=== PATIENT | female | born 1990 | race Caucasian/White ===

== ENCOUNTER → 2017-07-29 | Outpatient (CLI) | payer OTHER ==
[~2017-07-29] MED LIST: AXIRON30 MG/1.5 TD; AZIT250 PO; BIRTH CONTROL PILL PO; CLIN300 PO; CYCL10 PO; DEPO PROVERA; DHEA PO; ERYT.5TO OD; ETHINYL ESTRADIOL; FERR325 PO; HYDACE5 PO; IBUP600 PO; LUPRON; MEDR150I IM; MULVITMINE PO; NAPR500 PO; NORETHINDRONE; OMEP40CA12 PO; OXYACE5T PO; OXYACE7.5T PO; POLY17UD PO; PROM25 PO; Percocet 5-3251 EACH PO; Portia1 EACH PO; RANI150 PO; RXCYCL10 PO; RXHYDACE PO; SEASONIQUE BCP PO; Sucralfate1 GM PO; TAMS.4ER PO; TESTOSTERONE PRO; TRAM50 PO; VAGIFEM10 MCG VG; ZOLP10 PO; Zofran Odt4 MG SL; [UNRECOGNIZED DRUG - OTHER]; [UNRECOGNIZED DRUG - OTHER] PO
== END | disposition home or self-care (01) ==
LOC: LAB EV 12:55
DX: J03.90 Acute tonsillitis, unspecified (principal)
CPT/HCPCS: 87070

== ENCOUNTER → 2017-08-30 | Outpatient (CLI) | payer OTHER ==
[2017-08-31 09:40] LABS: Source VAG/CERVIX
== END | disposition home or self-care (01) ==
LOC: LAB 16:23
PROVIDERS: Advanced Practice Midwife
DX: Z01.419 Encounter for gynecological examination (general) (routine) without abnormal findings (principal)
CPT/HCPCS: G0123

== ENCOUNTER → 2018-01-24 | Outpatient (CLI) | payer OTHER ==
[2018-01-25 09:55] LABS: Candida species (DNA Probe) Negative (NEGATIVE); G. vaginalis (DNA Probe) Positive (NEGATIVE); T. vaginalis (DNA Probe) Negative (NEGATIVE)
== END ==
LOC: LAB 13:56 → LAB SHORT 13:56
PROVIDERS: Obstetrics & Gynecology
DX: N76.0 Acute vaginitis (principal)
CPT/HCPCS: 87480; 87510; 87660

== ENCOUNTER → 2019-02-26 | Outpatient (CLI) | payer OTHER ==
[2019-02-26 19:01] LABS: Bilirubin, Urine Neg (Neg); Blood, Urine Neg (Neg); Glucose Qualitative, Urine Neg (Neg); Ketones, Urine Neg (Neg); Leukocyte Esterase, Urine Neg (Neg); Nitrite, Urine Neg (Neg); Protein, Urine Neg (Neg); Urobilinogen, Urine NORM (Normal)
[2019-02-26 19:03] LABS: Appearance, Urine Clear (Clear); Color, Urine Yellow (P-Yellow)
== END | disposition home or self-care (01) ==
LOC: LAB SHORT 18:19 → LAB 18:19
PROVIDERS: Advanced Practice Midwife
DX: R10.2 Pelvic and perineal pain (principal)
CPT/HCPCS: 81003; 87086

== ENCOUNTER → 2019-08-06 | Outpatient (CLI) | payer OTHER ==
[2019-08-06 15:10] LABS: Source, Urine Clean Catch
[2019-08-06 18:36] LABS: Appearance, Urine Clear (Clear); Bilirubin, Urine Neg (Neg); Blood, Urine 1+ (Neg); Color, Urine Amber (P-Yellow); Glucose Qualitative, Urine Neg (Neg); Ketones, Urine 2+ (Neg); Leukocyte Esterase, Urine 3+ (Neg); Nitrite, Urine Neg (Neg); Protein, Urine 1+ (Neg); Urobilinogen, Urine NORM (Normal)
[2019-08-06 18:45] LABS: Bacteria Many /hpf; Red Blood Cells, Urine 0-2 /hpf (0-2); Squamous Epithelial Cells Mod /hpf (Few); White Blood Cells, Urine 50-100 /hpf (0-5)
[2019-08-06 18:46] LABS: Mucus Light (0-Heavy)
== END | disposition home or self-care (01) ==
LOC: LAB 14:00 → LAB SHORT 14:00
PROVIDERS: Obstetrics & Gynecology
DX: R30.0 Dysuria (principal); R30.9 Painful micturition, unspecified
CPT/HCPCS: 81001; 87086

== ENCOUNTER 2019-08-22 06:16 | Inpatient (IN) | payer OTHER ==
[~2019-08-22] VITALS: Ht 160 cm; Wt 89.0 kg
[2019-08-22] MEDS ORDERED: PRENATAL GUMMI1 EACH PO (06:48)
[2019-08-22] MEDS ORDERED: CYCL10 PO (06:48)
[2019-08-22 06:49] LABS: BASOPHILS ABSOLUTE AUTO 0.05 K/mm3 (0.00-0.23); BASOPHILS PERCENT AUTO 1 % (0-2); EOSINOPHILS ABSOLUTE AUTO 0.11 K/mm3 (0.00-0.68); EOSINOPHILS PERCENT AUTO 1 % (0-6); Hematocrit 30.7 % (33.0-51.0); Hemoglobin 9.8 g/dL (11.5-16.0); IMMATURE GRAN ABSOLUTE AUTO 0.33 K/mm3 (0.00-0.10); IMMATURE GRAN PERCENT AUTO 3 % (0-1); LYMPHOCYTES ABSOLUTE AUTO 2.55 K/mm3 (0.84-5.20); LYMPHOCYTES PERCENT AUTO 23 % (21-46); MONOCYTES ABSOLUTE AUTO 0.94 K/mm3 (0.16-1.47); MONOCYTES PERCENT AUTO 9 % (4-13); Mean Corpuscular HGB 28.1 pg (26.0-34.0); Mean Corpuscular HGB Conc 31.9 g/dL (31.5-36.5); Mean Corpuscular Volume 88 fL (80-100); Mean Platelet Volume 10.9 fL (9.1-12.4); NEUTROPHILS ABSOLUTE AUTO 7.07 K/mm3 (1.96-9.15); NEUTROPHILS PERCENT AUTO 64 % (41-73); NRBC ABSOLUTE 0.02 K/mm3 (0.00-0.02); NRBC Auto 0.2 /100 WBC (0.0-0.2); Platelet Count 347 K/mm3 (150-400); RDW Coefficient Variation 13.4 % (11.7-14.2); RDW Standard Deviation 42.8 fL (35.1-46.3); Red Blood Cell Count 3.49 M/mm3 (3.80-5.20); White Blood Cell Count 11.05 K/mm3 (4.00-11.30)
--- NOTE | 2019-08-23 14:57 | NUR ---
Assumed care from Arleen Bryant RN. Pt sleeping soundly. knows to call with needs.
--- NOTE | 2019-08-23 17:17 | NUR ---
CONSULT. SHE IS LESS THAN 12 HOURS OLD AND ALREADY WAKING FOR SOME FEEDINGS. BABY JUST FINISHED AT BREAST, 4 MINUTES OF SUCKLING AND SHE WAS ASSISTED TO BREAST BY RN. INSTRUCT IN CHANGES TO EXPECT DURING THE FIRST WEEK WITH BABY AND WITH FEEDINGS AND REFERRED TO BF BOOKLET AND BF BROCHURE FOR PHOTOS AND INFORMATION. MOM HAD TAKEN [employer] CLASSES AND HAD BF INSTRUCTION DURING CLASS AND IS HANDLING BABY WELL AND WORKING ON WIDENING THE LATCH DURING SUCKLING. DENIES FURTHER QUESTIONS.
[2019-08-24 05:52] LABS: Hematocrit 22.5 % (33.0-51.0); Hemoglobin 7.3 g/dL (11.5-16.0); Mean Corpuscular HGB 28.2 pg (26.0-34.0); Mean Corpuscular HGB Conc 32.4 g/dL (31.5-36.5); Mean Corpuscular Volume 87 fL (80-100); Platelet Count 327 K/mm3 (150-400); RDW Coefficient Variation 13.6 % (11.7-14.2); RDW Standard Deviation 42.8 fL (35.1-46.3); Red Blood Cell Count 2.59 M/mm3 (3.80-5.20); White Blood Cell Count 28.56 K/mm3 (4.00-11.30)
[2019-08-24] MEDS ORDERED: IBUP800 PO (09:32)
--- NOTE | 2019-08-24 10:02 | NUR ---
RN ROUNDED ON PATIENT TO DISCUSS . MOTHER REPORTS THAT IS GOING WELL, STATES BABY LIKES TO BREASTFEED IN [place] HOLD ON LEFT SIDE BETTER THAN RIGHT SIDE. RN EDUCATED MOTHER ABOUT ABOUT POSSIBLY TRYING FOOTBALL HOLD ON RIGHT SIDE TO SEE IS SHE WAS MORE SUCCESSFUL WITH LATCHING. RN NOTICED A SMALL CRACK TO RIGHT NIPPLE, RN EXPLAINED THAT SHOULD NOT BE PAINFUL THE ENTIRE FEED AND DESCRIBED TO HER HOW TO DELATCH NB IF PAINFUL, ALSO EXPLAINED WHAT TO LOOK FOR WITH CORRECT LATCHING. MOTHER VERBALIZED UNDERSTANDING AND DENIES ANY FURTHER QUESTIONS OR CONCERNS AT THIS TIME.
--- NOTE | 2019-08-24 15:24 | NUR ---
DISCHARGE INSTRUCTIONS, WRITTEN AND VERBAL, GIVEN TO PT AND . ANSWERED ALL QUESTIONS AND CONCERNS.
--- NOTE | 2019-08-24 16:18 | NUR ---
ALL PERSONAL BELONGINGS RETURNED. FOLLOW UP APPOINTMENT SCHEDULED. PT IS DISCHARGED HOME, DRIVEN BY .
== END 2019-08-24 17:10 | disposition home or self-care (01) | DRG 807 ==
LOC: BC 06:16
PROVIDERS: ADMIT Obstetrics & Gynecology
PROC: 3E033VJ Introduction of Other Hormone into Peripheral Vein, Percutaneous Approach (ICD-10-PCS; 2019-08-22)
PROC: 10E0XZZ Delivery of Products of Conception, External Approach (ICD-10-PCS; principal; 2019-08-23)
PROC: 0KQM0ZZ Repair Perineum Muscle, Open Approach (ICD-10-PCS; 2019-08-23)
PROC: 10907ZC Drainage of Amniotic Fluid, Therapeutic from Products of Conception, Via Natural or Artificial Opening (ICD-10-PCS; 2019-08-23)
PROC: 3E0R3BZ Introduction of Anesthetic Agent into Spinal Canal, Percutaneous Approach (ICD-10-PCS; 2019-08-23)
DX: O48.0 Post-term pregnancy (principal); Z37.0 Single live birth; Z3A.41 41 weeks gestation of pregnancy; O99.02 Anemia complicating childbirth; D64.9 Anemia, unspecified; O77.0 Labor and delivery complicated by meconium in amniotic fluid; O63.1 Prolonged second stage (of labor); O70.0 First degree perineal laceration during delivery; Z88.0 Allergy status to penicillin
CPT/HCPCS: 36415; 51702; 85025; 85027; 85460; 96372; A9270; J1885; J2001; J2405; J2590; J2791; J3010; J7120

== ENCOUNTER → 2019-08-28 | Outpatient (CLI) | payer OTHER ==
[~2019-08-28] MED LIST changes: +IBUP800 PO; +PRENATAL GUMMI1 EACH PO
[2019-08-28 15:51] LABS: BASOPHILS ABSOLUTE AUTO 0.08 K/mm3 (0.00-0.23); BASOPHILS PERCENT AUTO 1 % (0-2); EOSINOPHILS ABSOLUTE AUTO 0.11 K/mm3 (0.00-0.68); EOSINOPHILS PERCENT AUTO 1 % (0-6); Hematocrit 29.4 % (33.0-51.0); Hemoglobin 9.2 g/dL (11.5-16.0); IMMATURE GRAN ABSOLUTE AUTO 0.23 K/mm3 (0.00-0.10); IMMATURE GRAN PERCENT AUTO 2 % (0-1); LYMPHOCYTES ABSOLUTE AUTO 1.96 K/mm3 (0.84-5.20); LYMPHOCYTES PERCENT AUTO 14 % (21-46); MONOCYTES ABSOLUTE AUTO 0.96 K/mm3 (0.16-1.47); MONOCYTES PERCENT AUTO 7 % (4-13); Mean Corpuscular HGB 27.8 pg (26.0-34.0); Mean Corpuscular HGB Conc 31.3 g/dL (31.5-36.5); Mean Corpuscular Volume 89 fL (80-100); Mean Platelet Volume 9.5 fL (9.1-12.4); NEUTROPHILS ABSOLUTE AUTO 10.59 K/mm3 (1.96-9.15); NEUTROPHILS PERCENT AUTO 76 % (41-73); NRBC ABSOLUTE 0.03 K/mm3 (0.00-0.02); NRBC Auto 0.2 /100 WBC (0.0-0.2); Platelet Count 730 K/mm3 (150-400); Red Blood Cell Count 3.31 M/mm3 (3.80-5.20); White Blood Cell Count 13.93 K/mm3 (4.00-11.30)
[2019-08-28 16:06] LABS: Alanine Aminotransfer (ALT/SGP 22 U/L (12-78); Albumin/Globulin Ratio 0.6 (0.8-1.8); Alk Phos 147 U/L (40-126); Anion Gap 12 mmol/L (6-16); Aspartate Aminotrans (AST/SGOT 23 U/L (12-37); Bilirubin, Total 0.4 mg/dL (0.1-1.0); Blood Urea Nitrogen 8 mg/dL (8-24); Bun/Creatinine Ratio 12.9 (12.0-20.0); CO2, Blood 24 mmol/L (21-32); Chloride, Blood 103 mmol/L (98-108); Creatinine, Blood 0.62 mg/dL (0.40-1.00); Globulin, Blood 5.3 g/dL (2.2-4.0); Glomerular Filtration Rate >60 (60-); Glucose, Blood 87 mg/dL (70-99); Potassium, Blood 3.9 mmol/L (3.5-5.5); Sodium, Blood 139 mmol/L (136-145); Total Protein, Blood 8.3 g/dL (6.4-8.2); Troponin I <0.017 ng/mL (0.000-0.040)
== END ==
LOC: LAB SHORT 15:47 → LAB EV 15:47
PROVIDERS: Physician Assistant
DX: R07.9 Chest pain, unspecified (principal)
CPT/HCPCS: 80053; 84484; 85025; 85379

== ENCOUNTER → 2021-10-15 | Outpatient (CLI) | payer OTHER ==
[~2021-10-15] MED LIST changes: +DICL25ER PO; +LORA1; +Prozac40 MG; +TRAM50
[2021-10-19 15:08] LABS: HPV 16 Negative (Negative); HPV 18 Negative (Negative); HPV OTHER HR TYPES Negative (Negative)
== END | disposition home or self-care (01) ==
LOC: LAB SHORT 16:00
PROVIDERS: Obstetrics & Gynecology
DX: Z01.419 Encounter for gynecological examination (general) (routine) without abnormal findings (principal)
CPT/HCPCS: 87624; G0123

== ENCOUNTER → 2021-12-09 | Outpatient (CLI) | payer OTHER ==
[2021-12-10 11:06] LABS: Candida species (DNA Probe) Negative (NEGATIVE); G. vaginalis (DNA Probe) Positive (NEGATIVE); T. vaginalis (DNA Probe) Negative (NEGATIVE)
== END | disposition home or self-care (01) ==
LOC: LAB SHORT 16:24 → LAB 16:24
PROVIDERS: Obstetrics & Gynecology
DX: N89.8 Other specified noninflammatory disorders of vagina (principal)
CPT/HCPCS: 87480; 87510; 87660

== ENCOUNTER → 2022-06-24 | Outpatient (CLI) | payer OTHER ==
[~2022-06-24] MED LIST changes: +ALPR.5; +ATOM40 PO; +ATOM60 PO; +B COMPLEX WITH1 EACH PO; +DIINDOLYLMETHANE1 GM; +IBUP400 PO; +ROXICODONE5 MG PO
[2022-06-25 11:33] LABS: Candida species (DNA Probe) Negative (NEGATIVE); G. vaginalis (DNA Probe) Positive (NEGATIVE); T. vaginalis (DNA Probe) Negative (NEGATIVE)
== END | disposition home or self-care (01) ==
LOC: LAB SHORT 10:25 → LAB 10:25
PROVIDERS: Obstetrics & Gynecology
DX: N76.0 Acute vaginitis (principal)
CPT/HCPCS: 87480; 87510; 87660

== ENCOUNTER 2023-05-09 06:15 | Day surgery (SDC) | payer OTHER ==
[~2023-05-09] VITALS: Ht 160 cm; Wt 76.1 kg
[2023-05-09] VITALS (16 sets, daily range): BP systolic 90–116; BP diastolic 51–85
[2023-05-09] MEDS ORDERED: METPHE10 PO (06:36)
[2023-05-09] MEDS ORDERED: DIAZ10 VAG (06:36)
[2023-05-09] MEDS ORDERED: TIZA4 PO (06:36)
[2023-05-09] MEDS ORDERED: DICLOFENAC SOD100 GM TP (06:37)
[2023-05-09] MEDS ORDERED: Robaxin750 MG PO (06:37)
[2023-05-09] MEDS ORDERED: Vitamin C100 M1 PO (06:37)
[2023-05-09] MEDS ORDERED: ACET500 PO (06:38)
[2023-05-09] MEDS ORDERED: OXAYDO5 M1 PO (06:38)
[2023-05-09] MEDS ORDERED: DICL75ER PO (06:39)
--- NOTE | 2023-05-09 07:05 | NUR ---
Patient up to Ambulate independently. Gait steady. Surgical site prepped with 2% Chlorhexidine cloth wipe. History, Chart, Medications and Allergies reviewed before start of procedure. Lungs clear T/O to Auscultation. Patient confirms NPO status and agrees with scheduled surgery. Pre-Op teaching done. Pt verbalizes understanding. Patient States Post-Procedure ride home has been arranged WITH [facility].
--- NOTE | 2023-05-09 10:06 | NUR ---
C/O RLQ ABDOMINAL PAIN AND RATES 5/10. DENIES NAUSEA AT THIS TIME. BREATHING RA. ALERT AND TALKING TO NURSE. AT BEDSIDE ASSISTING PATIENT WITH SIPS OF WATER.
--- NOTE | 2023-05-09 10:24 | NUR ---
TOLERATING PO FLUIDS WELL. DENIES NAUSEA.
--- NOTE | 2023-05-09 10:59 | NUR ---
VSS. DENIES NAUSEA. REPORTS PAIN LESS NOW WITH ANALGESIC. RATES 4/10 TO SURGERY SITE. SURGICAL INCISIONS NOTED X3 TO ABDOMEN WITH SURGICAL GLUE CLOSURE. NO NOTED DRAINAGE, SWELLING, ERYTHEMA OR BRUISING. [place] PAD IS DRY WITH NO NOTED DRAINAGE. UP TO DRESS WITH STEADY GATE.
--- NOTE | 2023-05-09 11:07 | NUR ---
UP TO BR. VOIDED. NOTED SCANT DRY RED DRAINAGE TO [place] PAD AFTER PATIENT GOT UP OUT OF BED.
== END 2023-05-09 11:09 | disposition home or self-care (01) ==
LOC: ORSCMMR 06:15 → ORD 07:30 → ORSCMMR 07:30
PROVIDERS: Obstetrics & Gynecology
PROC: 0UJ34ZZ Inspection of Ovary, Percutaneous Endoscopic Approach (ICD-10-PCS; principal; 2023-05-09 07:30)
DX: R10.2 Pelvic and perineal pain (principal); Z90.710 Acquired absence of both cervix and uterus; Z87.891 Personal history of nicotine dependence
CPT/HCPCS: A9270; J1100; J1170; J1885; J2250; J2405; J2704; J3010; J7120

== ENCOUNTER → 2023-07-13 | Outpatient (CLI) | payer OTHER ==
[~2023-07-13] MED LIST changes: +ACET500 PO; +DIAZ10 VAG; +DICL75ER PO; +DICLOFENAC SOD100 GM TP; +METPHE10 PO; +OXAYDO5 M1 PO; +Robaxin750 MG PO; +TIZA4 PO; +Vitamin C100 M1 PO
[2023-07-14 09:46] LABS: Candida species (DNA Probe) Negative (NEGATIVE); G. vaginalis (DNA Probe) Positive (NEGATIVE); T. vaginalis (DNA Probe) Negative (NEGATIVE)
== END | disposition home or self-care (01) ==
LOC: LAB 14:35 → LAB SHORT 14:35
PROVIDERS: Obstetrics & Gynecology
DX: N76.0 Acute vaginitis (principal)
CPT/HCPCS: 87480; 87510; 87660

== ENCOUNTER → 2023-07-26 | Outpatient (CLI) | payer OTHER ==
[2023-07-27 10:07] LABS: Candida species (DNA Probe) Negative (NEGATIVE); G. vaginalis (DNA Probe) Negative (NEGATIVE); T. vaginalis (DNA Probe) Negative (NEGATIVE)
== END | disposition home or self-care (01) ==
LOC: LAB 15:13 → LAB SHORT 15:13
PROVIDERS: Obstetrics & Gynecology
DX: N76.0 Acute vaginitis (principal)
CPT/HCPCS: 87480; 87510; 87660

== ENCOUNTER → 2023-08-18 | Outpatient (CLI) | payer OTHER ==
[2023-08-19 12:13] LABS: Candida species (DNA Probe) Negative (NEGATIVE); G. vaginalis (DNA Probe) Positive (NEGATIVE); T. vaginalis (DNA Probe) Negative (NEGATIVE)
== END | disposition home or self-care (01) ==
LOC: LAB 17:33 → LAB SHORT 17:33
PROVIDERS: Obstetrics & Gynecology
DX: N76.0 Acute vaginitis (principal)
CPT/HCPCS: 87480; 87510; 87660

== ENCOUNTER → 2023-08-31 | Outpatient (CLI) | payer OTHER ==
[2023-09-01 11:09] LABS: Bacterial Vaginosis PCR Negative (NEGATIVE); Candida Group, PCR NOT DETECTED (NOT DETECT); Candida glabrata-krusei, PCR NOT DETECTED (NOT DETECT)
== END | disposition home or self-care (01) ==
LOC: LAB SHORT 16:53 → LAB 16:53
PROVIDERS: Obstetrics & Gynecology
DX: N76.0 Acute vaginitis (principal)
CPT/HCPCS: 87481; 87661; 87801